=== PATIENT | female | born 1950 | race Caucasian/White ===

== ENCOUNTER 2019-07-14 19:23 | Emergency (ER) | payer MEDICARE, OTHER ==
[~2019-07-14] VITALS: Ht 170.2 cm; Wt 47.6 kg
[2019-07-14 19:39] VITALS: BP 160/86
[2019-07-14] MEDS ORDERED: ACETAMINOPHEN 500 MG TAB PO ONE (20:00)
== END 2019-07-14 21:09 | disposition home or self-care (01) ==
LOC: ER 19:29
DX: S00.03XA Contusion of scalp, initial encounter (principal); S30.0XXA Contusion of lower back and pelvis, initial encounter; W01.198A Fall on same level from slipping, tripping and stumbling with subsequent striking against other object, initial encounter; Y93.89 Activity, other specified; Y92.89 Other specified places as the place of occurrence of the external cause; Y99.8 Other external cause status
CPT/HCPCS: 70450; 72220